=== PATIENT | female | born 1985 | race Caucasian/White ===

== ENCOUNTER 2017-06-08 15:49 | Emergency (ER) | payer BC ==
[~2017-06-08] VITALS: Ht 157.5 cm; Wt 78.0 kg
[2017-06-08 16:36] LABS: CALCIUM 8.6 mg/dL (8.5-10.1); CARBON DIOXIDE 22.2 mmol/L (21-32); CHLORIDE SERUM 103 mmol/L (98-107); CREATININE SERUM 0.6 mg/dL (0.6-1.0); GFR1 > 60 mL/min; GLUCOSE SERUM 132 mg/dL (74-106); POTASSIUM SERUM 3.3 mmol/L (3.5-5.1); SODIUM SERUM 140 mmol/L (136-145)
[2017-06-08 16:41] LABS: ALKALINE PHOSPHATASE 89 U/L (46-116); ALT/SGPT 25 U/L (14-59); AST/SGOT 9 U/L (15-37); BILIRUBIN TOTAL 0.7 mg/dL (0.20-1.00); TOTAL PROTEIN, SERUM 7.4 g/dL (6.4-8.2)
[2017-06-08 16:44] LABS: BASOPHIL % 0.3 % (0-2); PLATELET COUNT 283 x10^3mcL (130-400); RED CELL DISTRIBUTION WIDTH 13.9 % (11.5-14.5)
[2017-06-08 16:51] LABS: T3 TOTAL 1.19 ng/mL
[2017-06-08 17:08] LABS: FREE T4 1.17 ng/dL (0.76-1.46); FREE THYROXINE INDEX 3.6 ug/dL (1.4-4.5); T4(THYROXINE) 10.1 ug/dL (4.7-13.3)
[2017-06-08 18:08] VITALS: BP 115/64
== END 2017-06-08 17:47 | disposition home or self-care (01) ==
LOC: ED 15:49
PROVIDERS: Emergency Medicine
DX: I47.1 Supraventricular tachycardia (principal); F43.9 Reaction to severe stress, unspecified
CPT/HCPCS: 83880; 84439; 85378; J0153; J7030

== ENCOUNTER 2017-06-24 00:29 | Emergency (ER) | payer SELFPAY ==
[2017-06-24 03:04] VITALS: BP 118/94
== END 2017-06-24 03:04 | disposition home or self-care (01) ==
LOC: ED 00:29
DX: R00.2 Palpitations (principal); F41.9 Anxiety disorder, unspecified

== ENCOUNTER 2017-07-06 16:31 | Emergency (ER) | payer MEDICAID ==
[2017-07-06 18:12] LABS: BASOPHIL % 0.2 % (0-2); PLATELET COUNT 240 x10^3mcL (130-400)
[2017-07-06 18:17] LABS: CALCIUM 8.4 mg/dL (8.5-10.1); CARBON DIOXIDE 23.6 mmol/L (21-32); CHLORIDE SERUM 106 mmol/L (98-107); CREATININE SERUM 0.6 mg/dL (0.6-1.0); GFR1 > 60 mL/min; GLUCOSE SERUM 83 mg/dL (74-106); POTASSIUM SERUM 3.4 mmol/L (3.5-5.1); SODIUM SERUM 139 mmol/L (136-145)
[2017-07-06 18:21] LABS: ALBUMIN 3.9 g/dL (3.4-5.0); ALKALINE PHOSPHATASE 79 U/L (46-116); ALT/SGPT 17 U/L (14-59); AST/SGOT 12 U/L (15-37); BILIRUBIN TOTAL 0.93 mg/dL (0.20-1.00); TOTAL PROTEIN, SERUM 7.6 g/dL (6.4-8.2)
[2017-07-06 20:02] VITALS: BP 112/85
== END 2017-07-06 20:02 | disposition home or self-care (01) ==
LOC: ED 16:31
PROVIDERS: Emergency Medicine
DX: R07.89 Other chest pain (principal); R06.00 Dyspnea, unspecified; R20.2 Paresthesia of skin; R53.1 Weakness
CPT/HCPCS: J7030

== ENCOUNTER 2018-04-18 15:47 | Emergency (ER) | payer BC ==
[~2018-04-18] VITALS: Ht 157.5 cm; Wt 76.7 kg
[2018-04-18 15:59] VITALS: Ht 157.5 cm; Wt 76.7 kg
[2018-04-18 19:04] LABS: RED CELL DISTRIBUTION WIDTH 13.5 % (11.5-14.5)
[2018-04-18 19:08] LABS: PLATELET COUNT 145 x10^3mcL (130-400)
[2018-04-18 20:06] VITALS: BP 117/75
== END 2018-04-18 20:06 | disposition home or self-care (01) ==
LOC: ED 15:47
PROVIDERS: Emergency Medicine
DX: I10 Essential (primary) hypertension (principal); O20.0 Threatened abortion; Z3A.01 Less than 8 weeks gestation of pregnancy
CPT/HCPCS: 36415